=== PATIENT | female | born 1965 | race Two or more races ===

== ENCOUNTER 2017-12-22 09:54 | Emergency (ER) | payer OTHER ==
[~2017-12-22] VITALS: Ht 167.6 cm; Wt 71.7 kg
[~2017-12-22 09:54] MED LIST: PEPCID40 MG PO; ZOFRAN4 MG PO
== END 2017-12-22 17:09 | disposition home or self-care (01) ==
LOC: ER 09:54
DX: N80.8 Other endometriosis (principal)